=== PATIENT | male | born 1990 | race Caucasian/White ===

== ENCOUNTER 2022-12-23 22:37 | Observation (INO) ==
[2022-12-23] MEDS ORDERED: metroNIDAZOLE 500 MG/100 ML BAG IV STA (23:25)
[2022-12-23] MEDS ORDERED: ONDANSETRON INJ 2 MG/ML 2 ML VIAL IV STA (23:25)
[2022-12-23] MEDS ORDERED: MoRPHine SULFATE 4 MG/ML 1 ML CARP\\VIAL IV STA (23:25)
[2022-12-23] MEDS ORDERED: CIPROFLOXACIN / D5W 400 MG/200 ML BAG IV STA (23:25)
[2022-12-23] MEDS ORDERED: SODIUM CHLORIDE 0.9% 1000ML 1,000 ML IV SCH (23:30)
[2022-12-23 23:33] LABS: Basophils # (auto) 0.04 K/uL (0-0.2); Basophils % (auto) 0.4 %; Eosinophils # (auto) 0.02 K/uL (0-0.50); Eosinophils % (auto) 0.2 %; Hemoglobin 15.3 g/dl (14.0-18.0); Immature Granulocytes # (auto) 0.04 K/uL (0.01-0.20); Immature Granulocytes % (auto) 0.4 %; Lymphocytes # (auto) 1.37 K/uL (1.2-3.4); Lymphocytes % (auto) 12.1 %; Mean Corpuscular Hemoglobin 28.9 pg (25.0-34.0); Mean Corpuscular Hgb Conc 35.6 g/dL (32.0-36.0); Mean Corpuscular Volume 81.1 fL (80.0-100.0); Mean Platelet Volume 10.7 fL (9.4-12.4); Monocytes # (auto) 0.84 K/uL (0.11-0.59); Monocytes % (auto) 7.4 %; Neutrophils # (auto) 9.05 K/uL (1.40-6.50); Neutrophils % (auto) 79.5 %; Platelet Count 258 K/uL (130-400); RDW Coefficient of Variation 12.8 % (11.5-14.5); RDW Standard Deviation 37.8 fL (36.4-46.3); White Blood Count 11.36 K/ul (4.8-10.8)
[2022-12-23 23:41] LABS: Albumin Globulin Ratio 1.5 (0.9-2); Albumin Level 4.6 gm/dl (3.4-5.0); BUN Creatinine Ratio 11.8 (10-20); Bilirubin,Total 0.8 mg/dl (0.2-1.0); Calcium 9.3 mg/dl (8.6-10.3); Est GFR (African American) 125.5 ml/min; Est GFR (Non-African American) 108.2 ml/min; Potassium 3.6 mmol/L (3.5-5.1); Total Protein 7.6 gm/dl (6.0-8.3)
[2022-12-23] MEDS ORDERED: ACETAMINOPHEN 500 MG TAB PO STA (23:46)
[2022-12-24] MEDS ORDERED: LIDOCAINE 1% LOCAL 20 ML VIAL INFIL ONE (00:28)
[2022-12-24 00:46] LABS: Bilirubin Direct 0.1 mg/dl (0-0.2); Magnesium 2.1 mg/dl (1.7-2.4)
--- NOTE | 2022-12-24 00:50 | Operative Report ---
PG Post Operative Report Pre & Post Diagnosis Operation Date: 12/24/22 08:00 <No data on this case meets the specified criteria> Pilonidal abscess I identified the patient and participated in the time-out.: Yes Procedure Operation Date: 12/24/22 08:00 <No data on this case meets the specified criteria> Incision and drainage up pilonidal abscess Surgeon Charlie Zelaya MD, FACS Pier Worker layne crowley Estimated Blood Loss 10 Findings Consistent with Post-Op Diagnosis Pilonidal abscesscultured Specimens Culture Description of Procedure Patient was in his ER bed in the prone position He had evidence of a pilonidal abscess in the gluteal crease It was draining purulent fluid I was able to use 1% plain lidocaine to anesthetize the tissue Incision was then made with an 11 blade scalpel recovering significant purulent purulent fluid Quarter-inch Nu Gauze was gently placed A dressing was applied I attest to the content of the Intraoperative Record and any orders documented therein. Any exceptions are noted below.
[2022-12-24] MEDS ORDERED: ONDANSETRON INJ 2 MG/ML 2 ML VIAL IV PRN (00:58)
[2022-12-24] MEDS ORDERED: MoRPHine SULFATE 4 MG/ML 1 ML CARP\\VIAL IV PRN (00:58)
--- NOTE | 2022-12-24 00:58 | History & Physical Report ---
Date of Service December 24, 2022 Assessment & Plan (1) Abscess: Plan: The patient is noted to have an abscess superior to the rectum. Due to this problem the patient be admitted to the hospital proceeding as follows: Dr. Zelaya performed a bedside I&D of the affected area. Please refer to his attending note for more detailed description of this procedure Analgesia be provided Antiemetics will be provided We will provide hydration with IV fluids Antibiotics have been initiated the emergency department in form of Cipro and Flagyl. These antibiotics will be continued. Appropriate cultures have been obtained including a wound culture and blood cultures and culture data will help tailor further antibiotic choices Local wound care will be employed for the present time Additional recommendations will be made based on his clinical course as it unfolds and the progression of his abscess cavity/wound. SCDs will be used for DVT prevention, no chemical means until it is ascertain whether or not the patient require any additional procedures He will be a level 1 full code History of Present Illness Chief Complaint: Rectal pain Primary Care Provider: NO PCP This is a 32-year-old male who presented to the emergency department secondary to rectal pain. Patient notes that several days ago he felt that he had an ingrown superior to his rectum. He said that his attempted to pull some hair out of the affected area and over the past 24 hours the area became erythematous, painful, and warm. He then notes that the area started to have an open area draining pus so he presented to the emergency department. Patient denies ever having an issue like this before. He notes that he is not diabetic. He does not take any medicines. He denies any shakes or chills but has been running fevers. Since arrival to the emergency department the patient has had labs which independent reviewed. CBC reveals white blood cell count is 11.3. Hemoglobin, hematocrit, and platelet count were within normal range. Chemistry profile showed sodium, potassium, BUN, and creatinine were within normal range. There is no elevation of patient's LFTs. Procalcitonin level was normal. At the time of my interview the patient was expressing some discomfort in the perirectal area but was in no distress. Concerning past medical history the patient denies any medical problems Concerning past surgical history the patient reports he has only had dental problems Concerning allergies he says he is allergic to erythromycin and penicillin derivatives Patient notes he does not take any medicines Concerning social history the patient says that he currently does smoke Concerning family history he notes that he does not note any family history of premature coronary artery disease. Past Med/Surg History Social History Smoking Status: Never smoker Preferred Language: Nicaraguan Feels Safe at Home: Yes Review of Systems Constitutional: + fever; no chills Eyes: + corrective lenses Ear, Nose, Mouth, Throat: no ear pain Respiratory: no cough Cardiovascular: no chest pain Gastrointestinal: no abdominal pain Genitourinary: no dysuria Musculoskeletal: no back pain Integumentary: as per Subjective / HPI Neurologic: no localized weakness Physical Exam Physical Exam: The patient was lying in the prone position. Just superior to the anus the patient had approximately 1 cm area that was draining yellow pus. The area had some surrounding erythema without crepitus in the soft tissue. The area was somewhat warm to touch and was painful with palpation. Constitutional: WD/WN, vitals as above Eyes: Wears glasses ENMT: Ears: no hearing impairment and no external ear abnormality Mouth: no oropharynx abnormality Neck: trachea midline Respiratory: normal respiratory effort; no respiratory distress and no labored breathing Cardiovascular: Rate/Rhythm: regular rate and regular rhythm Gastrointestinal (Abdomen): Abdomen not examined this patient was lying prone Musculoskeletal: No calf tenderness Neurologic: moves all extremities Psychiatric: A+Ox3, euthymic affect Results & Data Results & Data Vital Signs (Past 12 Hours) Vital Signs Temp Pulse Resp BP Pulse Ox O2 Del Method 12/23/22 22:40 38 C H 119 H 18 136/88 96 Room Air PG Care Time/CCT Total # of Minutes Spent Total Time Spent with Patient: Total time spent is greater than 50% in coordination of care (as documented) at patient's floor/unit and/or counseling patient: Coding Level of Care Code 65776 INT INP/OBS CARE 3/75MIN Diagnoses Abscess L02.91
--- NOTE | 2022-12-24 01:35 | Emergency Department Note ---
History of Present Illness General Chief complaint: Rectal Pain Stated complaint: SOMETHING BIG GIVING ANAL PAIN Time Seen by Provider: 12/23/22 23:19 History of Present Illness Maximum Pain Intensity: 6 This 32-year-old male presents to the ER complaining of rectal pain that is now leaking purulent material for the past week. No history of Tylenol abscess in the past. No injury to the area. No IV drug use. Patient denies chest pain, dyspnea, cough, congestion, abdominal pain, urinary symptoms, perineum pain, testicular pain. Past Med/Surg History Social History Smoking Status: Never smoker Preferred Language: Argentine Feels Safe at Home: Yes Review of Systems A total of 10 systems reviewed and were otherwise negative Physical Exam Vital Signs Vital Signs - 24 hr 12/23/22 22:40 Temperature 38 C H Temperature Source Oral Pulse Rate 119 H Respiratory Rate 18 Respiratory Effort / Characteristics Non-Labored Spontaneous Respiratory Depth Normal Blood Pressure 136/88 Blood Pressure Mean 104 Blood Pressure Position Sitting Pulse Oximetry 96 Oxygen Delivery Method Room Air Sepsis Recent Fever Within 48 Hours Yes Sepsis New/Unexplained Change in Mental Status No Sepsis Action Taken by Nursing No Action Required VITALS: Vitals are noted on the nurse's note and reviewed by myself. Vital signs febrile. GENERAL: Pleasant male pacing the room who appears in pain, in no acute distress, nondiaphoretic, well-developed well-nourished. SKIN: Pilonidal infected with purulent material leaking from the area with surrounding erythema and edema concerning for infection, the rest of the skin was without rashes, erythema, edema, or bruising. There is no tenting of the skin. Capillary reflex less than 2 seconds. HEAD: Normocephalic atraumatic. EARS: External auditory canals clear, EYES: Pupils equal round and reactive to light and accommodation. Conjunctivae without injection, sclerae without icterus. Extraocular movements intact. NOSE: Patent, turbinates without inflammation or discharge. MOUTH: Mucous membranes moist. Pharynx without erythema or exudate. Uvula midline. Airway patent. Tongue does not deviate. NECK: Supple without nuchal rigidity. No lymphadenopathy. No thyromegaly. Cervical spine is nontender. No JVD. HEART: Regular rate and rhythm LUNGS: Clear to auscultation bilaterally without wheezes, rales or rhonchi. No retractions or accessory muscle use. ABDOMEN: Positive bowel sounds x 4. Normal tympanic percussion. Soft, non tender, without masses or organomegaly. Cassidy sign negative. No guarding or rebound tenderness. No CVA tenderness Rectal exam: Palpable abscess present with surrounding erythema and edema concerning for infection. Culture taken and sent. No perineum pain. MUSCULOSKELETAL: No muscle atrophy, erythema, or edema noted. NEURO: Patient was alert and oriented to person place and time. Normal sen sation to light and sharp touch. No focal neurological deficits. Course Administered Medications Discontinued Medications Acetaminophen (Acetaminophen 500 Mg Tab) 1,000 mg PO NOW STA Stop: 12/23/22 23:47 Last Admin: 12/24/22 01:02 Dose: 1,000 mg Documented By: CORAL Sodium Chloride (Nss 1000ml) 1,000 mls @ 999 mls/hr IV .Q1H1M SHO Stop: 12/24/22 00:30 Last Admin: 12/24/22 01:04 Dose: 999 mls/hr Documented By: CORAL Ciprofloxacin (Cipro / D5w) 400 mg in 200 mls @ 100 mls/hr IV NOW STA; Protocol Stop: 12/24/22 01:24 Last Admin: 12/24/22 01:25 Dose: 100 mls/hr Documented By: CORAL Metronidazole (Flagyl) 500 mg in 100 mls @ 100 mls/hr IV NOW STA; Protocol Stop: 12/24/22 00:24 Last Admin: 12/24/22 01:22 Dose: 100 mls/hr Documented By: CORAL Lidocaine HCl (Lidocaine 1% Local 20 Ml Vial) 10 ml INFIL NOW ONE Stop: 12/24/22 00:29 Last Admin: 12/24/22 00:31 Dose: 10 ml Documented By: CORAL Morphine Sulfate (Morphine Sulfate 4 Mg/Ml 1 Ml Carp\Vial) 4 mg IV NOW STA Stop: 12/23/22 23:26 Last Admin: 12/24/22 01:08 Dose: 4 mg Documented By: CORAL Ondansetron HCl (Ondansetron Inj 2 Mg/Ml 2 Ml Vial) 4 mg IV NOW STA Stop: 12/23/22 23:26 Last Admin: 12/24/22 01:06 Dose: 4 mg Documented By: CORAL Medical Decision Making Medical Records Attestation: I reviewed the patient's medical records. Home Medications Current Medication List: was personally reviewed by me Laboratory Data Attestation: I reviewed the patient's lab results. 12/23/22 22:45 12/23/22 22:45 Lab Results 12/23/22 12/23/22 12/23/22 Range/Units 00:52 22:45 22:45 WBC 11.36 H (4.8-10.8) K/ul RBC 5.30 (4.70-6.10) M/uL Hgb 15.3 (14.0-18.0) g/dl Hct 43.0 (42.0-52.0) % MCV 81.1 (80.0-100.0) fL MCH 28.9 (25.0-34.0) pg MCHC 35.6 (32.0-36.0) g/dL RDW Std Deviation 37.8 (36.4-46.3) fL RDW Coeff of Braydon 12.8 (11.5-14.5) % Plt Count 258 (130-400) K/uL MPV 10.7 (9.4-12.4) fL Immature Gran % (Auto) 0.4 % Neut % (Auto) 79.5 % Lymph % (Auto) 12.1 % [place] % (Auto) 7.4 % Eos % (Auto) 0.2 % Baso % (Auto) 0.4 % Neut # (Auto) 9.05 H (1.40-6.50) K/uL Lymph # (Auto) 1.37 (1.2-3.4) K/uL [place] # (Auto) 0.84 H (0.11-0.59) K/uL Eos # (Auto) 0.02 (0-0.50) K/uL Baso # (Auto) 0.04 (0-0.2) K/uL Immature Gran # (Auto) 0.04 (0.01-0.20) K/uL Sodium 137 (136-145) mmol/L Potassium 3.6 (3.5-5.1) mmol/L Chloride 102 (98-107) mmol/L Carbon Dioxide 24 (21-32) mmol/L Anion Gap 11 (3-11) BUN 11 (6-23) mg/dl Creatinine 0.93 (0.6-1.4) mg/dl Est Cr Clr Drug Dosing 114.0 ml/min Est GFR ( Amer) 125.5 ml/min Est GFR (Non-Af Amer) 108.2 ml/min BUN/Creatinine Ratio 11.8 (10-20) Glucose 100 H (70-99(Fasting)) mg/dl Lactate 1.8 (0.4-2.0) mmol/L Calcium 9.3 (8.6-10.3) mg/dl Magnesium 2.1 (1.7-2.4) mg/dl Total Bilirubin 0.8 (0.2-1.0) mg/dl Direct Bilirubin 0.1 (0-0.2) mg/dl AST 27 (13-39) U/L ALT 20 (7-52) U/L Alkaline Phosphatase 80 (34-104) U/L Total Protein 7.6 (6.0-8.3) gm/dl Albumin 4.6 (3.4-5.0) gm/dl Globulin 3.0 (2.5-4.0) gm/dl Albumin/Globulin Ratio 1.5 (0.9-2) Procalcitonin (0-0.5) ng/ml 12/23/22 Range/Units 22:45 WBC (4.8-10.8) K/ul RBC (4.70-6.10) M/uL Hgb (14.0-18.0) g/dl Hct (42.0-52.0) % MCV (80.0-100.0) fL MCH (25.0-34.0) pg MCHC (32.0-36.0) g/dL RDW Std Deviation (36.4-46.3) fL RDW Coeff of Braydon (11.5-14.5) % Plt Count (130-400) K/uL MPV (9.4-12.4) fL Immature Gran % (Auto) % Neut % (Auto) % Lymph % (Auto) % [place] % (Auto) % Eos % (Auto) % Baso % (Auto) % Neut # (Auto) (1.40-6.50) K/uL Lymph # (Auto) (1.2-3.4) K/uL [place] # (Auto) (0.11-0.59) K/uL Eos # (Auto) (0-0.50) K/uL Baso # (Auto) (0-0.2) K/uL Immature Gran # (Auto) (0.01-0.20) K/uL Sodium (136-145) mmol/L Potassium (3.5-5.1) mmol/L Chloride (98-107) mmol/L Carbon Dioxide (21-32) mmol/L Anion Gap (3-11) BUN (6-23) mg/dl Creatinine (0.6-1.4) mg/dl Est Cr Clr Drug Dosing ml/min Est GFR ( Amer) ml/min Est GFR (Non-Af Amer) ml/min BUN/Creatinine Ratio (10-20) Glucose (70-99(Fasting)) mg/dl Lactate (0.4-2.0) mmol/L Calcium (8.6-10.3) mg/dl Magnesium (1.7-2.4) mg/dl Total Bilirubin (0.2-1.0) mg/dl Direct Bilirubin (0-0.2) mg/dl AST (13-39) U/L ALT (7-52) U/L Alkaline Phosphatase (34-104) U/L Total Protein (6.0-8.3) gm/dl Albumin (3.4-5.0) gm/dl Globulin (2.5-4.0) gm/dl Albumin/Globulin Ratio (0.9-2) Procalcitonin 0.21 (0-0.5) ng/ml MDM Narrative Prior records reviewed and summarized as above. Triage Nursing notes reviewed. Additional history obtained from nursing. The patient's history was concerning for swelling and redness of the skin. Differential diagnosis: Etiologies such as pilonidal abscess, rectal abscess, perirectal abscess, FG, cellulitis, abscess, MRSA infection, DVT, necrotizing fasciitis, dermatitis, drug eruption, as well as others were entertained.. Physical examination: As above ER treatment provided: Cipro and Flagyl were ordered. Patient was given IV morphine. IV fluids were ordered On reassessment the patient felt better. Diagnostics interpreted by me: The labs Independently Interpreted by myself revealed leukocytosis, blood cultures pending Negative procalcitonin. Wound culture pending Consultation: A consultation was placed with the surgical team Dr. Zelaya and Jasson BRENNAN. The case was discussed and diagnostics were reviewed. The patient was evaluated in the ER for further treatment. This appears to be extensive Tylenol abscess. Patient was febrile and tachycardic. He was started on IV antibiotics. He had a penicillin allergy. He is given Cipro and Flagyl. Surgery was consulted and evaluated the patient. They I&D the abscess at bedside. They will admit the patient. Patient is agreeable treatment plan of admission. Case was discussed with the surgical team for admission. Labs were independently interpreted by myself. Patient was reassessed. By the evaluation outlined above emergent etiologies such as necrotizing fasciitis, DVT, as well as others were deemed relatively unlikely. The pt informed about the findings as listed above. All questions were answered and pleased with the treatment. The chart was completed utilizing [employer] Speech voice recognition software. Grammatical errors, random word insertions, pronoun errors, and incomplete sentences are an occassional consequence of this system due to software limitations, ambient noise, and hardware issues. Any formal questions or concerns about the content, text, or information contained within the body of this dictation should be directly addressed to the physician food trades assistants for clarification. Impression & Plan Pilonidal abscess, Febrile Discharge Plan Visit Data Chief Complaint: Rectal Pain Stated Complaint: SOMETHING BIG GIVING ANAL PAIN ED Provider: Lillian Gastelum ED Midlevel Provider: Joseline Dupree Discharge Problem: Pilonidal abscess, Febrile Patient Disposition: Being Evaluated by Surgeon Condition: Good Forms Stand Alone Forms: [facility] Referrals Referrals: PCP,NO [Primary Care Provider] -
[2022-12-24] MEDS: oxyCODONE HCL IR 5 MG TAB (IMMEDIATE RELEASE) PO PRN ×2 (03:44→10:01)
[2022-12-24] MEDS: SODIUM CHLORIDE 0.9% 1000ML 1,000 ML IV SCH ×2 (03:45→09:17)
[2022-12-24 04:06] LABS: Appearance Urine Clear (Clear); Bilirubin Urine Negative (Negative); Blood Urine Negative (Negative); Color Urine Yellow; Glucose Urine UA Negative (Negative); Ketones Urine Trace (Negative); Leukocyte Esterase Urine Negative (Negative); Nitrite Urine Negative (Negative); Protein Urine Negative (Negative); Urobilinogen Urine Negative (Negative); pH Urine 5.5 (4.5-7.5)
[2022-12-24] MEDS: ACETAMINOPHEN 325 MG TAB PO SCH ×2 (05:49→11:44)
--- NOTE | 2022-12-24 05:55 | Surgery Progress Note ---
Date of Service December 24, 2022 Assessment & Plan (1) Pilonidal abscess: Plan: Status post incision and drainage at bedside on 12/23/2022 (postprocedure day #1) Continue analgesics Continue antiemetics Continue diet as tolerated Check a.m. labs and available Continue antibiotics while hospitalized. Patient is currently receiving Cipro and Flagyl Admission and Anticipated Discharge Date Admission Date: December 24, 2022 Supervising Physician Co-Signing Physician Notes Dr. Zelaya-patient is stable-we will have the nurses replace the packing, discharge home later on antibiotics and pain medication We will have his remove the packing tomorrow and then see him in the office on Monday or Monday If he were to have more problems we would likely consider imaging and operative intervention Subjective Patient is currently sleeping in bed but easily arousable. He does note continued pain in the perirectal area similar to what was noted at time of admission and notes as long as he does not apply pressure away to this area he is comfortable. He denies any chills but has had intermittent fevers. He notes he has tolerated oral intake since admission and denies any nausea or vomiting. Physical Exam 2 Physical Exam: Dressing at previous incision and drainage site is currently clean, dry, and intact. Results & Data Vital Signs (Past 12 Hours) Vital Signs Temp Pulse Pulse Resp BP BP Pulse Ox 12/24/22 05:05 108 H 12/24/22 03:00 36.8 C 99 H 18 132/90 95 12/24/22 03:01 92 H 16 134/72 94 12/24/22 02:00 98 H 16 134/72 94 12/24/22 01:56 101 H 16 94 12/24/22 01:30 101 H 16 114/82 94 12/23/22 22:40 38 C H 119 H 18 136/88 96 O2 Del Method 12/24/22 05:05 12/24/22 03:00 Room Air 12/24/22 03:01 Room Air 12/24/22 02:00 Room Air 12/24/22 01:56 Room Air 12/24/22 01:30 Room Air 12/23/22 22:40 Room Air PG Care Time/CCT Total # of Minutes Spent Total Time Spent with Patient: Total time spent is greater than 50% in coordination of care (as documented) at patient's floor/unit and/or counseling patient: Coding Level of Care Code 13460 SUB INP/OBS CARE 07/13MIN Diagnoses Pilonidal abscess L05.01
[2022-12-24 06:30] LABS: Basophils # (auto) 0.03 K/uL (0-0.2); Basophils % (auto) 0.3 %; Eosinophils # (auto) 0.01 K/uL (0-0.50); Eosinophils % (auto) 0.1 %; Hematocrit (blood only) 36.8 % (42.0-52.0); Hemoglobin 13.1 g/dl (14.0-18.0); Immature Granulocytes # (auto) 0.03 K/uL (0.01-0.20); Immature Granulocytes % (auto) 0.3 %; Lymphocytes # (auto) 1.75 K/uL (1.2-3.4); Lymphocytes % (auto) 20.1 %; Mean Corpuscular Hgb Conc 35.6 g/dL (32.0-36.0); Mean Corpuscular Volume 81.6 fL (80.0-100.0); Mean Platelet Volume 10.7 fL (9.4-12.4); Monocytes # (auto) 0.84 K/uL (0.11-0.59); Monocytes % (auto) 9.7 %; Neutrophils # (auto) 6.04 K/uL (1.40-6.50); Neutrophils % (auto) 69.5 %; Platelet Count 175 K/uL (130-400); RDW Coefficient of Variation 12.7 % (11.5-14.5); RDW Standard Deviation 37.7 fL (36.4-46.3); Red Blood Count 4.51 M/uL (4.70-6.10)
[2022-12-24 06:49] LABS: BUN Creatinine Ratio 9.9 (10-20); Calcium 8.1 mg/dl (8.6-10.3); Creatinine Clr Calc Pharmacy 145.2 ml/min; Est GFR (African American) 136.3 ml/min; Est GFR (Non-African American) 117.6 ml/min; Potassium 3.5 mmol/L (3.5-5.1)
[2022-12-24] MEDS ORDERED: metroNIDAZOLE 500 MG/100 ML BAG IV SCH (08:00)
[2022-12-24] MEDS ORDERED: CIPROFLOXACIN / D5W 400 MG/200 ML BAG IV SCH (10:00)
--- NOTE | 2022-12-26 19:27 | Discharge Summary ---
Date of Service December 26, 2022 Admission HPI Per Admitting Provider This is a 32-year-old male who presented to the emergency department secondary to rectal pain. Patient notes that several days ago he felt that he had an ingrown superior to his rectum. He said that his attempted to pull some hair out of the affected area and over the past 24 hours the area became erythematous, painful, and warm. He then notes that the area started to have an open area draining pus so he presented to the emergency department. Patient denies ever having an issue like this before. He notes that he is not diabetic. He does not take any medicines. He denies any shakes or chills but has been running fevers. Since arrival to the emergency department the patient has had labs which independent reviewed. CBC reveals white blood cell count is 11.3. Hemoglobin, hematocrit, and platelet count were within normal range. Chemistry profile showed sodium, potassium, BUN, and creatinine were within normal range. There is no elevation of patient's LFTs. Procalcitonin level was normal. At the time of my interview the patient was expressing some discomfort in the perirectal area but was in no distress. Concerning past medical history the patient denies any medical problems Concerning past surgical history the patient reports he has only had dental problems Concerning allergies he says he is allergic to erythromycin and penicillin derivatives Patient notes he does not take any medicines Concerning social history the patient says that he currently does smoke Concerning family history he notes that he does not note any family history of premature coronary artery disease. Discharge Data Consultations 12/24/22 00:50 ED Decision to Admit Stat Procedures Performed Operation Date: 12/24/22 08:00 <No data on this case meets the specified criteria> Hospital Course (1) Pilonidal abscess: Date of admission: 12/24/2022 Date of discharge: 12/24/2022 This is a 32-year-old male who presented to the emergency department [facility] secondary to rectal pain. Patient was noted to have pilonidal abscess and Dr. Zelaya performed an incision and drainage at the bedside. The patient was placed on antibiotics in form of Cipro and Flagyl while in the hospital. He was observed overnight following his bedside I&D and he was deemed stable for discharge home after an uneventful postoperative course on 12/24/2022. At time of discharge patient did have packing in place but he was told to remove this 1 day after discharge. He was instructed to utilize a bowel regimen consisting of either Senokot or milk of magnesia in order to avoid constipation. He was instructed on appropriate wound care, diet, and activity. He is instructed to call Dr. Zelaya's office to arrange for a follow-up appointment on either 12/26/2022 or 12/27/2022. Coding Level of Care Code None Diagnoses Pilonidal abscess L05.01
== END 2022-12-24 11:55 | disposition home or self-care (01) | DRG 603 ==
LOC: ED 22:37 → INTOOBSV 12-24 01:05 → 2N 12-24 01:05